=== PATIENT | male | born 1985 | race Caucasian/White ===

== ENCOUNTER 2017-11-29 18:53 | Emergency (ER) | payer BC ==
[~2017-11-29] VITALS: Ht 182.9 cm; Wt 104.3 kg
[2017-11-29 19:00] VITALS: BP_SYST 137
--- NOTE | 2017-11-29 20:20 | NUR ---
Cecilio singh in [facility] - 11/29/17 at 2342 by [email or web address] Patient placed on Hallway. Patient complains of right eye irritation
--- NOTE | 2017-11-29 20:20 | NUR ---
Patient placed on hallway. patient is a 32-year-old male who presents to the emergency room for foreign body to right eye. 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 Patient is feeling right eye mild irritation.
--- NOTE | 2017-11-29 20:40 | NUR ---
Dr. Moses at bedside, examining patient's left eye and attempting to remove foreign material.
[2017-11-29] MEDS ORDERED: ERYTHROMYCIN BASE 0.5% EYE OINT...G. OP ONE (21:15)
--- NOTE | 2017-11-29 21:19 | NUR ---
Erythromycin ointment placed on patient's right eye as ordered.
--- NOTE | 2017-11-29 21:30 | NUR ---
Patient given written and verbal discharge instructions and verbalizes understanding. ER MD discussed with patient the results and treatment provided. Patient in stable condition. ID arm band removed. Rx of Erythromycin opthalmic oitment given. Patient educated on pain management and to follow up with PMD. Pain Scale 0/10. Opportunity for questions provided and answered. Medication side effect fact sheet provided.
[2017-11-29 23:49] VITALS: BP_SYST 137
== END 2017-11-29 21:30 | disposition home or self-care (01) ==
LOC: SED 18:53
DX: T15.01XA Foreign body in cornea, right eye, initial encounter (principal); W22.8XXA Striking against or struck by other objects, initial encounter; Y93.89 Activity, other specified; Y92.89 Other specified places as the place of occurrence of the external cause; Y99.8 Other external cause status
CPT/HCPCS: 99284